=== PATIENT | male | born 1950 | race African-American/Black ===

== ENCOUNTER → 2017-03-09 | Outpatient (CLI) | payer OTHER ==
[~2017-03-09] VITALS: Ht 175.3 cm; Wt 113.4 kg
[~2017-03-09] MED LIST: ALEVE220 MG PO; BENICAR HCT 401 EAC1 PO; BENICAR40 MG PO; COREG25 MG PO; CYCLOBENZAPRINE10 MG PO; KLOR-CON 1010 MEQ PO; LANTUS SOL100 UNIT/1 SUBQ; LIPITOR 20 MG T20 M1 PO; LORTAB 10-3251 EACH PO; NORCO 10-325 T1 EACH PO; NOVOLOG100 UNIT/1 SUBQ; VITAMIN D1000 UNI1 PO
--- NOTE | ~2017-03-09 | P ---
[facility] [place] [address] PROCEDURE REPORT Name: CAITLIN SANTILLAN Room #: REG [facility].#: [id number] Admission: 03/09/17 Attend Phys: Oleksandr Tolliver MD Discharge: Date of : 50 Report #: [id number] THIS REPORT FOR: //name// CC: Oleksandr Baron MD BRIEF HISTORY: The patient is a 66-year-old male with a history of colon polyp. His last colonoscopy was little more than 5 years ago. PREOPERATIVE DIAGNOSES: High risk screening colonoscopy, history of colon polyps. POSTOPERATIVE DIAGNOSES: 1. Diminutive polyps x 2, proximal transverse colon. 2. Flat 10-12 mm polyp, distal transverse colon. 3. Moderate diverticulosis coli, primarily distal descending colon and proximal sigmoid colon. 4. Internal hemorrhoids with probable intermittent prolapse. MEDICATIONS: Deep sedation with propofol per anesthesia. SPECIMEN: 1. Colon polyps x 2 proximal transverse colon. 2. Flat polyp, distal transverse colon. ESTIMATED BLOOD LOSS: 30 mL. PROCEDURE: Colonoscopy to cecum and terminal ileum with snare polypectomy and biopsy. FINDINGS: Prior to propofol sedation, procedure of colonoscopy discussed with the patient as well as potential risks and its complications. He indicates he understands and desires to proceed. DESCRIPTION OF PROCEDURE: With the patient in left lateral decubitus position, digital examination was completed which revealed no abnormalities. Subsequently, the [employer] video colonoscope was introduced in the rectum, advanced under direct vision to the cecum. Done with minimal difficulty. Cecum was identified by the ileocecal valve and appendiceal orifice. I was able to visualize the distal segment of terminal ileum, which was inspected and noted to be unremarkable. At that point, the scope was slowly withdrawn and careful circumferential views were obtained including retroflexion of the scope in the ascending colon. Upon slow withdrawal of the scope, there were noted to be some limitations of the prep with residual stool material and liquid. However, with vigorous irrigation and suctioning, we were able to remove much of this material and overall obtain a reasonably good prep. As we withdrew the scope, no [facility] [address] [place] [address] PROCEDURE REPORT Name: CAITLIN SANTILLAN Room #: REG [facility].#: [id number] Admission: 03/09/17 Attend Phys: Oleksandr Tolliver MD Discharge: Date of : 50 Report #: [id number] abnormalities were noted until the proximal transverse colon was reached at which point 2 diminutive polyps were seen and removed by biopsy. Scope was further withdrawn in the distal transverse colon. A flat 10-12 mm polyp was seen. It was removed with a cold polypectomy snare. However, there were still some material along the edges of the polypectomy site and these were cleaned up with biopsy forceps. A total polypectomy was achieved. As we withdrew the scope further, no additional polyps were seen. As we withdrew the scope in the descending colon, in particular distal descending colon as well as proximal sigmoid colon, there was noted to be moderate sigmoid diverticular disease without endoscopic evidence of diverticulitis. Scope was further withdrawn and no additional neoplastic lesions were seen. The scope was withdrawn in the rectum. Upon retroflexion, moderate internal hemorrhoids were seen. There was some erythema surrounding the hemorrhoids and I suspect he has periods of prolapse of the hemorrhoids. Scope was further withdrawn. No additional abnormalities were seen. Scope was withdrawn. The patient tolerated the procedure well. CONDITION OF THE PATIENT UPON DISCHARGE: Following procedure, the patient drowsy, arousable, conversant and will be discharged home when fully ambulatory. INSTRUCTIONS TO THE PATIENT AND FAMILY AT THE TIME OF DISCHARGE: Polyps identified and removed as described above. We will follow up on the pathology. However, in view of the flat polyp, as well as limitations of prep, we will have him return in 3 years for followup colonoscopy. Last colonoscopy was little more than 5 years ago. Withdrawal time from cecum including cleanup was 24 minutes 28 seconds. <ELECTRONICALLY SIGNED> By: Oleksandr Tolliver MD 03/10/17 0919 [id number] Oleksandr Tolliver MD /[place]
--- NOTE | ~2017-03-09 | S ---
[facility] [place] [address] SURGICAL PATH RPT PROCEDURE Name: CAITLIN SANCHEZ Room #: REG [facility].#: [id number] Admission: 03/09/17 Date of : 50 Discharge: Report #: [id number] Path Case #: [id number] PATHOLOGY REPORT COLLECTION DATE: 03/09/2017 RECEIVED DATE: 03/09/2017 SUBMITTING PHYS: Dr. Oleksandr Tolliver OTHER PHYS: Dr. Alec Baron SPECIMEN(S) RECEIVED: A.Proximal transverse polyps x2 B.Distal transverse polyp * * * * * * * * * * * * FINAL DIAGNOSIS: A. Polyp x 2, proximal transverse, endoscopic biopsy: - Two fragments showing tubular adenoma. - Negative for high-grade dysplasia. B. Polyp, at distal transverse colon, endoscopic biopsy: - Tubular adenoma. - Negative for high-grade dysplasia. (IUV:mgr; 03/10/2017) PATHOLOGIST: Tracy Wheatley M.D. REPORT ELECTRONICALLY SIGNED BY: Tracy Wheatley M.D. DATE/TIME: 03/10/2017 13:50 * * * * * * * * * * * * GROSS PATHOLOGY: A. Received in formalin labeled "Caitlin Sanchez, polyp at proximal transverse 2," are 2 segments of arzate soft tissue measuring 1.1 x 0.2 x 0.3 cm in aggregate dimensions and ranging from 0.5 to 0.6 cm in maximum dimension. The specimen is submitted entirely in cassette A1. B. Received in formalin labeled "Caitlin Sanchez, polyp at distal transverse colon," are 8 segments of arzate soft tissue measuring 2.5 x 1.6 x 0.4 cm in aggregate dimensions and ranging from 0.1 to 0.5 cm in maximum dimension. The specimen is submitted entirely in cassette B1. (TSD; 03/09/2017) CLINICAL HISTORY: Colon polyps INITIAL CPT CODE(S): A; [address] [address] SURGICAL PATH RPT PROCEDURE Name: CAITLIN SANCHEZ Room #: REG [facility].#: [id number] Admission: 03/09/17 Date of : 50 Discharge: Report #: [id number] Path Case #: [id number]; [id number] Professional services performed by [facility] at [address] , [place] [address] Technical services performed by [facility] at [address] [place] [address], [facility] [address] [address]. [facility] [address] [place] [address] PHONE: [phone] DIRECTOR: Cooper Bryan M.D. * * * END OF REPORT * * *
== END | disposition home or self-care (01) ==
LOC: GI 07:53
DX: Z09 Encounter for follow-up examination after completed treatment for conditions other than malignant neoplasm (principal); D12.3 Benign neoplasm of transverse colon; K57.30 Diverticulosis of large intestine without perforation or abscess without bleeding; K64.8 Other hemorrhoids; I10 Essential (primary) hypertension; E78.00 Pure hypercholesterolemia, unspecified; E11.9 Type 2 diabetes mellitus without complications; Z79.4 Long term (current) use of insulin; Z86.010 Personal history of colon polyps; Z98.890 Other specified postprocedural states; Z79.899 Other long term (current) drug therapy
CPT/HCPCS: 62110; 62900

== ENCOUNTER → 2021-01-21 | Outpatient (CLI) | payer OTHER | LOC: RAD 09:50 | PROVIDERS: ATTEND Nurse Practitioner | DX: M47.816 Spondylosis without myelopathy or radiculopathy, lumbar region (principal); M48.061 Spinal stenosis, lumbar region without neurogenic claudication ==